=== PATIENT | male | born 1995 | race Caucasian/White ===

== ENCOUNTER → 2018-10-09 15:33 | Outpatient (CLI) | payer OTHER, SELFPAY ==
--- NOTE | 2018-10-09 15:44 | CT_ITS ---
STUDY: CT MAXILLOFACIAL SINUSES REASON FOR EXAM: Male, 22 years old. Sinusitis, chronic RADIATION DOSAGE (If Supplied By Facility): CTDIvol = ( 33.06 ) mGy, DLP = ( 912.36 ) mGycm TECHNIQUE: The patient was scanned in a multi detector CT scanner. High resolution axial imaging was performed without the administration of intravenous contrast material. Sagittal and coronal images were reconstructed. Individualized dose optimization techniques were used for this CT. COMPARISON: None. FINDINGS: FRONTAL SINUSES: Normal aeration, without mucosal inflammatory disease. ETHMOIDAL SINUSES: Normal aeration, without mucosal inflammatory disease. MAXILLARY SINUSES: Normal aeration, without mucosal inflammatory disease. SPHENOIDAL SINUSES: Normal aeration, without mucosal inflammatory disease. There is patency of the bilateral maxillary infundibuli with normal uncinate processes, ethmoid bullae, and hiatus semilunaris. Normal bilateral middle turbinates. Normal bilateral inferior turbinates. Normal midline nasal septum. There is patency of the bilateral nasal airways. Mastoid air cells and middle ear cavities clear. Symmetric and grossly normal features of the vestibular and acoustic apparatus of the temporal bones. Craniofacial osseous structures normal. Extra cranial soft tissues including orbital contents normal. Upper cervical soft tissues exhibit no acute process. There are shotty cervical lymphadenopathy, symmetric bilaterally, numerous nonenlarged lymph nodes. In the posterior cervical chains bilaterally, enlarged with delayed on the right 13 mm short axis, enlarged lymph node on the left 13 mm short axis. Pharyngeal soft tissues exhibit no acute process. Lobulated appearance of nonenlarged lingual tonsils bilaterally. Small palatine tonsils. Normal adenoids. CT/Sinus/Facial Bone IMPRESSION: Normal paranasal sinuses, mastoid air cells and middle ear cavities. No evidence of acute or chronic sinus disease. Shotty cervical lymphadenopathy bilaterally, likely chronic, mildly enlarged lymph nodes of the posterior cervical chains. Somewhat unusual appearance of the lingual tonsils. Each appears mildly enlarged, extending downward into the vallecula. Each exhibits nodularity of its contour, diffusely. Consider the possibility of lymphoid hyperplasia, or papillomatosis. This could be associated with the patient's chronic-appearing cervical shotty lymphadenopathy. Electronically Signed: James Lawson MD at 17:26 EST Tel , Service support ,
== END ==
PROVIDERS: Family Provider Pediatrics; PCP Pediatrics; Referring Provider Otolaryngology; Visit Provider Otolaryngology
DX: J32.9 Chronic sinusitis, unspecified (principal)
CPT/HCPCS: 70486

== ENCOUNTER 2018-12-03 06:30 | Day surgery (SDC) | payer OTHER, SELFPAY ==
[2018-12-03 07:04] VITALS: BP 125/82; PULSE 60; RESP 16; TEMP 36.5; O2SAT 100; BMI 22.3
--- NOTE | 2018-12-03 08:00 | BON_PTH ---
PATIENT: AZAR SOLIS [place] [facility] [place][id number] AGE/SX: 22/M ROOM: RE12/03/[address]: Dr. Smooth Umaña MD : 1995 BED: DIS: 12/03/2018 SPEC #: [id number] RECD: 12/03/18 13:48 STATUS: LORA KARLA #: [id number] LUCIA: 12/03/18 08:[address]: Smooth Umaña DEPT: SURGICAL PATHOLOGY RECD BY: Jesse Kaufman ENTERED: 12/03/18 13:58 SP TYPE: Bone OTHR DR: Dr. Dhaval Garcia MD Tissues: Nasal cartilage, NOS Procedures: Decalcification bone/plaque Surgery Specimen Level III HEADER OPERATION: Septoplasty, resection inferior turbinates PRE-OP DIAGNOSIS: Nasal congestion, acquired deformity of nose, deviated nasal septum, hypertrophy of nasal turbinates, allergic rhinitis TISSUE SUBMITTED: Nasal cartilage and bone MICROSCOPIC DIAGNOSIS Nasal cartilage and bone: Fragments of cartilage and bone, clinically deviated nasal septum. GREGORIO:marcio 12/06/18 MICROSCOPIC DESCRIPTION Slides are reviewed. GROSS DESCRIPTION Received in fixative is one container labeled with the patient's name and designated nasal septum and cartilage. The specimen consists of multiple fragments of cartilage and bone that in aggregate measure 4 x 3 x 0.3 cm. [facility] tissue is submitted in one cassette after decalcification. / GREGORIO:marcio 12/03/18 TC:[address] [facility]: [id number], [id number]
[2018-12-03] MEDS: Oxymetazoline 0.05% 1 SPRAY SPRAY.BTL 15 SPRAY (08:05)
[2018-12-03] MEDS: Mupirocin Ointment 22gm Tube 1 APPLIC (08:30)
--- NOTE | 2018-12-03 09:08 | DCINST_ITS ---
You will use the following diet at home:: No restrictions Your food should be the consistency of: Regular Discharge Activity: May not drive while taking narcotic pain medications. Call your doctor if your incision/area has: Sudden Increased Bleeding, Increased Pain/ Swelling Additional Dressing/Incision Instructions:: mupirocin to both nostrils twice daily. nasal saline spray to both nostrils 6 times daily. Allergies/Adverse Reactions: Allergies No Known Allergies Allergy (Verified 11/26/18 09:07) Medications to take at Discharge Acetaminophen/Codeine #3 [Tylenol#3] 1 tab PO Q6H PRN PRN 5 Days #20 tab 12/03/18 Sulfamethoxazole/Trimethoprim [Bactrim 400-80 mg Tablet] 1 ea PO BID #10 tab 12/03/18 The following prescriptions were given: Acetaminophen/Codeine #3 [Tylenol#3] 1 tab PO Q6H PRN PRN 5 Days #20 tab PRN Reason: Pain Sulfamethoxazole/Trimethoprim [Bactrim 400-80 mg Tablet] 1 ea PO BID #10 tab Primary Care Physician: Dhaval Garcia MD [Primary Care Provider] - Test Results: Test results from this visit will be discussed in further detail at your follow- up appointment, if applicable. Please Follow Up With: Rory Umaña MD When: 1 week
--- NOTE | 2018-12-03 09:15 | OP.PCM_ITS ---
Problem List (1) Nasal congestion Status: Chronic (2) Other specified disorders of nose and nasal sinuses Status: Chronic (3) Nasal turbinate hypertrophy Status: Chronic Report of Operation Date of Procedure: 12/03/18 Pre-Operative Diagnosis: 1. nasal congestion. 2. inferior turbinate hypertrophy, right and left. 3. internal nasal valve collapse, right and left Post-Operative Diagnosis: 1. nasal congestion. 2. inferior turbinate hypertrophy, right and left. 3. internal nasal valve collapse, right and left Surgery/Procedure Performed:: 1. septoplasty. 2. correction internal nasal valve stenosis. 3. submucous resection inferior turbinates Type of Anesthesia:: General Description of Procedure: on the day of the procedure, after appropriate informed consent was obtained, the patient was brought to the operating room and placed in supine position on the operating table. he was placed under general endotracheal anesthesia by the anesthesiologist. the endotracheal tube was secured, the eyes were taped. the septum was injected with lidocaine/epinephrine. the bilateral nasal cavities were decongested with oxymetazoline soaked pledgets. a #15 blade was used to make a left marginal incision. a kathya elevator was used to develop submucoperichondrial flaps on the right then left. these went posteriorly to the bony/cartilaginous junction and inferiorly to the maxillary crest. a D-knife was used to remove the cartilaginous septum after a 1.5 cm L- strut was preserved. a khalida natarajan was used to remove deviated portions of the perpendicular plate of the ethmoid and vomer. the marginal incision was closed with 4-0 chromic. numerous quilting sutures were made to reapproximate the submucoperichondrial flaps using 4-0 chromic. the head of the right and left inferior turbinates were injected with lidocaine/epinephrine. the head of the right inferior turbinate was incised with a #15 blade, dissected submucosally with a kathya elevator, reduced using suction electrocautery and outfractured using a boies elevator. the head of the left inferior turbinate was incised with a #15 blade, dissected submucosally with a kathya elevator, reduced using suction electrocautery and outfractured using a boies elevator. the latera implant trocar was loaded. skin ga were made for placement. while everting the left ala with a double pronged skin hook, the trocar was inserted into the vestibular skin and advanced superficial to the upper lateral cartilage and nasal bones, but deep to the skin and soft tissue envelope. the trocar was removed and the vestibular skin was examined. the latera implant trocar was loaded. skin ga were made for placement. while everting the right ala with a double pronged skin hook, the trocar was inserted into the vestibular skin and advanced superficial to the upper lateral cartilage and nasal bones, but deep to the skin and soft tissue envelope. the trocar was removed and the vestibular skin was examined. an orogastric tube was inserted and gastric/pharyngeal contents were evacuated. the patient was rotated 90 degrees toward the anesthesiologist and he was subsequently extubated uneventfully. he was transferred to the PACU in stable condition.
[2018-12-03 09:18] VITALS: BP 125/82; BP 151/108; PULSE 89; RESP 16; TEMP 36.4; O2SAT 97
[2018-12-03 09:30] VITALS: BP 125/82; BP 148/99; PULSE 93; RESP 16; O2SAT 100
[2018-12-03 09:41] VITALS: BP 125/82; BP 153/97; PULSE 79; RESP 16; O2SAT 100
[2018-12-03] MEDS: Acetaminophen/Codeine #3 Tablet 1 TABLET PO (09:59)
[2018-12-03 10:55] VITALS: BP 125/82; BP 141/90; PULSE 70; RESP 18; TEMP 36.6; O2SAT 100
== END 2018-12-03 10:59 | disposition home or self-care (01) ==
LOC: SDC 06:31 → AC 06:32
PROVIDERS: Family Provider Pediatrics; PCP Pediatrics; Referring Provider Otolaryngology; Visit Provider Otolaryngology
PROC: (CPT 30520; principal; 2018-12-03 07:45)
DX: M95.0 Acquired deformity of nose (principal); J34.3 Hypertrophy of nasal turbinates; R09.81 Nasal congestion
CPT/HCPCS: 30140; 30465; 30520; 88304; 88311; J7120; J2405